=== PATIENT | female | born 1985 ===

== ENCOUNTER → 2018-08-11 | Outpatient (CLI) | payer OTHER | END | disposition home or self-care (01) | LOC: NST 11:51 | DX: Z34.83 Encounter for supervision of other normal pregnancy, third trimester (principal) ==

== ENCOUNTER → 2018-09-02 | Outpatient (CLI) | payer OTHER | END | disposition home or self-care (01) | LOC: NST 11:02 | DX: Z34.83 Encounter for supervision of other normal pregnancy, third trimester (principal) ==